=== PATIENT | female | born 1960 | race Caucasian/White ===

== ENCOUNTER → 2017-05-10 | Outpatient (CLI) | payer OTHER ==
[~2017-05-10] MED LIST: PRLSR20 PO
== END | disposition home or self-care (01) ==
LOC: C.PAPS 14:19
PROVIDERS: ATTEND Obstetrics & Gynecology
DX: Z12.4 Encounter for screening for malignant neoplasm of cervix (principal)

== ENCOUNTER 2022-06-13 21:45 | Inpatient (IN) ==
[2022-06-13] MEDS ORDERED: PANTOprazole 80 MG in DEXTROSE 5% 100 ML IV STA (22:08)
[2022-06-13] MEDS ORDERED: SODIUM CHLORIDE 0.9% 1000ML 1,000 ML IV SCH (22:15)
[2022-06-13 22:29] LABS: Basophils # (auto) 0.06 K/uL (0-0.2); Basophils % (auto) 0.8 %; Eosinophils # (auto) 0.27 K/uL (0-0.50); Eosinophils % (auto) 3.7 %; Hematocrit (blood only) 35.8 % (34.1-44.9); Hemoglobin 12.7 g/dl (12.0-16.0); Immature Granulocytes # (auto) 0.02 K/uL (0.00-0.02); Immature Granulocytes % (auto) 0.3 %; Lymphocytes # (auto) 1.78 K/uL (1.2-3.4); Lymphocytes % (auto) 24.7 %; Mean Corpuscular Hemoglobin 30.9 pg (25.0-34.0); Mean Corpuscular Hgb Conc 35.5 g/dL (32.0-36.0); Mean Corpuscular Volume 87.1 fL (80.0-100.0); Mean Platelet Volume 9.5 fL (9.4-12.3); Monocytes # (auto) 0.49 K/uL (0.24-0.82); Monocytes % (auto) 6.8 %; Neutrophils % (auto) 63.7 %; Platelet Count 246 K/uL (130-400); RDW Standard Deviation 38.5 fL (36.4-46.3); Red Blood Count 4.11 M/uL (3.93-5.22); White Blood Count 7.22 K/ul (4.8-10.8)
--- NOTE | 2022-06-13 22:29 | Emergency Department Note ---
Impression & Plan Acute GI bleeding, Dizziness, Vomiting, Tachycardia ED Provider Note NAME: SUNIL ZULUAGA AGE: 61 SEX: F : 1960 ARRIVES VIA: Walk-In INFORMANT: [Patient] ED PROVIDER(S): [Dustin Esparza MD] CHIEF COMPLAINT: Rectal bleeding HISTORY OF PRESENT ILLNESS: The patient is a 61-year-old female who presents to the ER with rectal bleeding that has been ongoing for 1.5 hours. She went to have a bowel movement and just purple dark blood was expelled. No stool. She has some lower abdominal cramping that is rated as mild. She did vomit once earlier, no blood in the vomitus. There has been no fever, no chills, no cough. No shortness of breath. She feels a bit dizzy she thinks since this all began. The patient does have a history of ulcers, she is on treatment--proton pump inhibitors. She has never had any bleeding from her colon. She is not on any blood thinning agents. REVIEW OF SYSTEMS: See HPI for pertinent positives and negatives. A total of ten systems were reviewed and were otherwise negative. PMHx/PSHx: See Below SOCIAL HISTORY: See Below. PHYSICAL EXAM: GENERAL: Patient is in no acute distress. HEENT: No acute trauma, normocephalic atraumatic, mucous membranes moist, no nasal congestion, no scleral icterus. NECK: No stridor, no adenopathy, no meningismus, trachea is midline. LUNGS: Clear to auscultation bilaterally, no wheeze, no rhonchi, breath sounds equal. HEART: Without murmurs gallops or rubs, regular rate and rhythm. ABDOMEN: Soft, nontender, bowel sounds positive, no peritonitis. EXTREMITIES: No cyanosis or edema, full range of motion of all the joints without pain or difficulty, no signs for acute trauma. NEUROLOGIC: Oriented x 3, no acute motor or sensory deficits, no focal weakness. SKIN: No rash, no jaundice, no diaphoresis. Rectal: No external source for bleeding. No hemorrhoids. Dark venous appearing blood noted, heme positive. Exam performed with female nurse bin packer. DIFFERENTIAL DIAGNOSIS: Diverticulosis, AVM, coagulopathy, colitis, inflammatory bowel disease, malignancy, Chrissy-Stubbs tear, esophagitis, peptic ulcer disease, variceal bleed, gastritis, epistaxis, fissure, hemorrhoids, as well as other pathologies. EMERGENCY DEPARTMENT COURSE/PROCEDURES: ECG: Indication was GI bleeding. The ECG shows a sinus tachycardia with a rate of 102. No ST elevation, no PVCs P the QTc was 445. Continuous Cardiac Monitoring: An order was placed for continuous cardiac monitoring. The monitor shows a rate of 110 with sinus tachycardia. Critical Care Note: I have personally spent 41 minutes of critical care time in the direct management of this patient. This includes bedside care, interpretation of diagnostic studies, and testing, discussion with consultants, patient, and family members, and other required patient management activities. This 41 minutes is in excess of all separately billable procedures. MEDICAL DECISION MAKING: There is no leukocytosis or concerning anemia. There is a normal platelet count. No coagulopathy. No significant electrolyte abnormality although, the BUN is slightly elevated. No worrisome liver enzyme elevation. ECG shows a sinus tachycardia, no ischemia. Cardiac enzyme testing x1 is not consistent with acute cardiac injury. COVID test returned negative. Abdominal and pelvis CT was read as essentially unremarkable. On exam, patient had dark venous appearing blood rectally. No external source for bleeding noted. Patient received IV Protonix, she received IV saline, 1 L. She has been resting comfortably. Patient is in need of a hospital stay. She appears to have GI bleeding, whether this is upper or lower is at this point not clear. Further work-up and care is warranted. She will need her hemoglobin followed. GI can decide on further testing tomorrow. I spoke with the patient and case management, the on-call hospitalist was consulted. Past Med/Surg History Medical History ASCUS with positive high risk HPV cervical GERD without esophagitis Stenosis of duodenum Surgical History History of dental surgery S/P surgery on nasal septum Family History Mother Myocardial infarction Heart disease Father GERD (gastroesophageal reflux disease) Osteoarthritis Denies family history of Ovarian cancer Prostate cancer Breast cancer Colorectal cancer Social History Smoking Status: Never smoker Hx Alcohol Use: Yes (Social drinker) Alcohol type: wine Alcohol Intake Frequency Comment: Once per week or less. Hx Substance Use: No Preferred Language: Yakut Communication Ability: Effective Visual Impairment: No Limitations Hearing Ability: Normal Pants Presser Automatic Required: No marital status: / current occupational status: employed current occupation: [employer] for a [employer] firm. Feels Safe at Home: Yes Seatbelt Use: always Allergies Allergies Allergy/AdvReac Type Severity Reaction Status Date / Time Sulfa (Sulfonamide Allergy Intermediate "SULFA": Verified 04/30/22 13:17 Antibiotics) RASH Penicillins Allergy Unknown ? Verified 04/30/22 13:17 Home Meds Home Medications Medication Instructions Recorded Confirmed multivitamin (Daily Multi-Vitamin 1 tab PO DAILY 04/23/19 04/30/22 tablet) cholecalciferol (vitamin D3) 50 50 mcg PO DAILY 04/28/21 04/30/22 mcg (2,000 unit) capsule Previous Rx's Medication Instructions Recorded omeprazole 40 mg capsule,delayed 40 mg PO DAILY #90 caps 04/30/22 release Results & Data (ED) Vital Signs Vital Signs - 24 hr 06/13/22 21:48 Temperature 36.5 C Temperature Source Temporal Artery Scan Pulse Rate 110 H Respiratory Rate 20 Respiratory Effort / Characteristics Non-Labored Spontaneous Respiratory Depth Normal Blood Pressure 125/89 Blood Pressure Mean 101 Pulse Oximetry 100 Oxygen Delivery Method Room Air Sepsis Recent Fever Within 48 Hours No Sepsis New/Unexplained Change in Mental Status N/A Sepsis Action Taken by Nursing No Action Required Home Medications Current Medication List: was personally reviewed by me Laboratory Data Attestation: I reviewed the patient's lab results. Result diagrams: 06/13/22 22:14 06/13/22 22:14 Lab Results 06/13/22 06/13/22 06/13/22 Range/Units 22:14 22:14 22:14 WBC 7.22 (4.8-10.8) K/ul RBC 4.11 (3.93-5.22) M/uL Hgb 12.7 (12.0-16.0) g/dl Hct 35.8 (34.1-44.9) % MCV 87.1 (80.0-100.0) fL MCH 30.9 (25.0-34.0) pg MCHC 35.5 (32.0-36.0) g/dL RDW Std Deviation 38.5 (36.4-46.3) fL RDW Coeff of Miller 12.0 (11.5-14.5) % Plt Count 246 (130-400) K/uL MPV 9.5 (9.4-12.3) fL Immature Gran % (Auto) 0.3 % Neut % (Auto) 63.7 % Lymph % (Auto) 24.7 % [place] % (Auto) 6.8 % Eos % (Auto) 3.7 % Baso % (Auto) 0.8 % Neut # (Auto) 4.60 (1.4-6.5) K/uL Lymph # (Auto) 1.78 (1.2-3.4) K/uL [place] # (Auto) 0.49 (0.24-0.82) K/uL Eos # (Auto) 0.27 (0-0.50) K/uL Baso # (Auto) 0.06 (0-0.2) K/uL Immature Gran # (Auto) 0.02 (0.00-0.02) K/uL PT 11.9 (9.0-12.0) Seconds INR 1.1 (0.9-1.1) APTT 23.6 (21.0-31.0) Seconds PTT Ratio 0.9 Sodium 140 (136-145) mmol/L Potassium 3.8 (3.5-5.1) mmol/L Chloride 109 H (98-107) mmol/L Carbon Dioxide 22 (21-32) mmol/L Anion Gap 9 (3-11) BUN 33 H (6-23) mg/dl Creatinine 0.74 (0.6-1.2) mg/dl Est Cr Clr Drug Dosing 64.7 ml/min Est GFR ( Amer) 102.8 ml/min Est GFR (Non-Af Amer) 88.7 ml/min BUN/Creatinine Ratio 44.6 H (10-20) Glucose 175 H (70-99(Fasting)) mg/dl Calcium 8.6 (8.5-10.1) mg/dl Magnesium 1.8 (1.7-2.4) mg/dl Total Bilirubin 1.1 H (0.2-1.0) mg/dl AST 18 (13-39) U/L ALT 13 (7-52) U/L Alkaline Phosphatase 42 (34-104) U/L Troponin I High Sens 2.3 (0-14) pg/ml Total Protein 6.3 (6.0-8.3) gm/dl Albumin 4.0 (3.4-5.0) gm/dl Globulin 2.3 L (2.5-4.0) gm/dl Albumin/Globulin Ratio 1.7 (0.9-2) SARS-CoV-2, RNA, NAAT (NEGATIVE) 06/13/22 Range/Units 22:29 WBC (4.8-10.8) K/ul RBC (3.93-5.22) M/uL Hgb (12.0-16.0) g/dl Hct (34.1-44.9) % MCV (80.0-100.0) fL MCH (25.0-34.0) pg MCHC (32.0-36.0) g/dL RDW Std Deviation (36.4-46.3) fL RDW Coeff of Miller (11.5-14.5) % Plt Count (130-400) K/uL MPV (9.4-12.3) fL Immature Gran % (Auto) % Neut % (Auto) % Lymph % (Auto) % [place] % (Auto) % Eos % (Auto) % Baso % (Auto) % Neut # (Auto) (1.4-6.5) K/uL Lymph # (Auto) (1.2-3.4) K/uL [place] # (Auto) (0.24-0.82) K/uL Eos # (Auto) (0-0.50) K/uL Baso # (Auto) (0-0.2) K/uL Immature Gran # (Auto) (0.00-0.02) K/uL PT (9.0-12.0) Seconds INR (0.9-1.1) APTT (21.0-31.0) Seconds PTT Ratio Sodium (136-145) mmol/L Potassium (3.5-5.1) mmol/L Chloride (98-107) mmol/L Carbon Dioxide (21-32) mmol/L Anion Gap (3-11) BUN (6-23) mg/dl Creatinine (0.6-1.2) mg/dl Est Cr Clr Drug Dosing ml/min Est GFR ( Amer) ml/min Est GFR (Non-Af Amer) ml/min BUN/Creatinine Ratio (10-20) Glucose (70-99(Fasting)) mg/dl Calcium (8.5-10.1) mg/dl Magnesium (1.7-2.4) mg/dl Total Bilirubin (0.2-1.0) mg/dl AST (13-39) U/L ALT (7-52) U/L Alkaline Phosphatase (34-104) U/L Troponin I High Sens (0-14) pg/ml Total Protein (6.0-8.3) gm/dl Albumin (3.4-5.0) gm/dl Globulin (2.5-4.0) gm/dl Albumin/Globulin Ratio (0.9-2) SARS-CoV-2, RNA, NAAT NEGATIVE (NEGATIVE) Administered Medications Discontinued Medications Sodium Chloride (Nss 1000ml) 1,000 mls @ 999 mls/hr IV .Q1H1M RENETTA Stop: 06/13/22 23:15 Last Infusion: 06/13/22 23:27 Dose: 0 mls/hr Documented By: Admin: 06/13/22 22:25 Dose: 999 mls/hr Documented By: ERIKA Pantoprazole Sodium 80 mg/ (Dextrose) 100 mls @ 400 mls/hr IV ONE STA Stop: 06/13/22 22:22 Last Infusion: 06/13/22 23:15 Dose: 0 mls/hr Documented By: Admin: 06/13/22 22:48 Dose: 400 mls/hr Documented By: ERIKA Ioversol (Optiray 350 100ml) 100 ml IV ONCE ONE Stop: 06/13/22 23:14 Last Admin: 06/13/22 23:13 Dose: 86 ml Documented By: KYLAH Imaging Data Radiologist's Impression: Abdominal and pelvis CT with contrast: The colon and rectum appear grossly normal. GI bleed tagged red blood cell scan could be performed to locate the source of bleeding. Solid organs demonstrate no acute findings. Slightly complex but likely benign left renal cysts. Small bowel and large bowel are no rmal. No appendicitis. Discharge Plan Visit Data Chief Complaint: Rectal Bleed Stated Complaint: RECTAL BLEEDING, VOMIT, ED Provider: Dustin Esparza Discharge Problem: Acute GI bleeding, Dizziness, Vomiting, Tachycardia Patient Disposition: Admitted As Inpatient Condition: Good Forms Stand Alone Forms: My [facility] Prescriptions Prescriptions: No Action cholecalciferol (vitamin D3) 50 mcg (2,000 unit) capsule 50 mcg PO DAILY omeprazole 40 mg capsule,delayed release(DR/EC) 40 mg PO DAILY Qty: 90 3RF multivitamin [Daily Multi-Vitamin] tablet 1 tab PO DAILY Referrals Referrals: Pro,Cesar Burleson MD [Primary Care Provider] -
[2022-06-13 22:41] LABS: INR 1.1 (0.9-1.1); Partial Thromboplastin Ratio 0.9; Partial Thromboplastin Time 23.6 Seconds (21.0-31.0); Prothrombin Time 11.9 Seconds (9.0-12.0)
[2022-06-13 22:54] LABS: Albumin Globulin Ratio 1.7 (0.9-2); BUN Creatinine Ratio 44.6 (10-20); Bilirubin,Total 1.1 mg/dl (0.2-1.0); Calcium 8.6 mg/dl (8.5-10.1); Creatinine Clr Calc Pharmacy 64.7 ml/min; Est GFR (African American) 102.8 ml/min; Est GFR (Non-African American) 88.7 ml/min; Globulin 2.3 gm/dl (2.5-4.0); Magnesium 1.8 mg/dl (1.7-2.4); Potassium 3.8 mmol/L (3.5-5.1); Total Protein 6.3 gm/dl (6.0-8.3)
[2022-06-13 22:57] LABS: Troponin I High Sensitivity 2.3 pg/ml (0-14)
[2022-06-13] MEDS ORDERED: OPTIRAY 350 100ml IV ONE (23:13)
--- NOTE | 2022-06-13 23:58 | History & Physical Report ---
Date of Service June 13, 2022 Assessment & Plan (1) Hematochezia: Plan: 61yo female with a history of HTN, GERD, and remote history of acute GI bleed (which did not require transfusion) presents with a few-hour history of hematochezia, nausea, and vomiting Hematochezia, nausea, vomiting Patient presented with the above symptoms; was initially tachycardic and tachypneic but this has resolved, currently hemodynamically stable In the ED, patient received NSS 1L bolus (x1) and pantoprazole 80mg IV (x1) No major lab abnormalities, no anemia (Hgb 12.7 on arrival), no electrolyte derangements GI consulted NPO pending possible scope Continue protonix 40mg IV bid NSS @ 100mL/hr (x1 bag ordered) Zofran prn nausea Trend CBC Hypertension: BP well-controlled at this time; continue to monitor GERD: PPI as noted above FEN: NPO, NSS @ 100mL/hr (x1 bag ordered) Code status: full code DVT ppx: SCDs Consults: gastroenterology Dispo: med/surg telemetry (2) GERD without esophagitis: (3) Hypertension: (4) Vomiting: History of Present Illness Primary Care Provider: Cesar Arevalo MD 61yo female with a history of HTN, GERD, and remote history of acute GI bleed (which did not require transfusion) presents with a few-hour history of hematochezia. Patient had a BM a few hours ago which she noticed was "purple dark blood". Patient also endorses mild lower abdominal cramping. Also had one episode of vomiting earlier today which was nonbloody and nonbilious. Patient denies fever, chills, abdominal pain, headache, vision changes, CP, palpitations, SOB, edema, abdominal pain, dysuria, back pain, dizziness, numbness, tingling, weakness, or other symptoms. Denies recent illness and recent travel. Upon arrival, vitals were notable for tachycardia (100-110s) and intermittent tachypnea (RR ranging from 20-27); BP well-controlled, patient afebrile, spO2 adequate on room air. Initial labs were relatively unremarkable; no leukocytosis, no anemia, platelets wnl, no electrolyte abnormalities, creatinine not elevated, LFTs wnl, covid PCR negative. In the ED, patient received NSS 1L bolus (x1) and pantoprazole 80mg IV (x1). EKG: sinus tachycardia, no overt ischemic change Imaging: CT abdomen/pelvis: no acute findings, colon and rectum grossly normal in appearance, "slightly complex but likely benign" left renal cysts noted measuring 5.8cm Surrogate decision-maker in case of an emergency: josy Paul (cell: [phone]) Allergies Allergy/AdvReac Type Severity Reaction Status Date / Time Sulfa (Sulfonamide Allergy Intermediate "SULFA": Verified 06/13/22 23:52 Antibiotics) RASH Penicillins Allergy Unknown ? Verified 06/13/22 23:52 Home Medications Medication Instructions Recorded Confirmed Type omeprazole 40 mg capsule,delayed 40 mg PO DAILY 06/13/22 06/13/22 History release Past Med/Surg History Medical History (Updated 06/14/22 @ 10:45 by Kaz Up MD) ASCUS with positive high risk HPV cervical Encounter for pre-operative examination GERD without esophagitis Stenosis of duodenum Surgical History History of dental surgery S/P surgery on nasal septum Family History Mother Myocardial infarction Heart disease Father GERD (gastroesophageal reflux disease) Osteoarthritis Denies family history of Ovarian cancer Prostate cancer Breast cancer Colorectal cancer Social History Smoking Status: Never smoker Second Hand Exposure: No; Do You Dip or Chew Tobacco: No; Tobacco Cessation Education Requested by Patient: No Hx Alcohol Use: Yes Alcohol type: wine Alcohol Intake Frequency Comment: Once per week or less. Hx Substance Use: No Preferred Language: Vietnamese Communication Ability: Effective Visual Impairment: No Limitations Hearing Ability: Normal Wire Stretcher Required: No Beliefs That Will Affect Care: None marital status: / Current Living Situation: Alone current occupational status: employed current occupation: [employer] for a [employer]. Other Information That Helps Us Care for You: No Feels Safe at Home: Yes Safety Concerns: Feels Safe At This Time Seatbelt Use: always Assistive Devices: None Physical Exam Physical Exam: Constitutional: well-appearing, no acute distress HEENT: NCAT, no conjunctival injection CV: regular rhythm, no murmur appreciated, extremities well-perfused, no LE edema Resp: CTABL, no wheezes/rales/rhonchi appreciated, no increased work of br eathing GI: soft, nondistended, nontender, BS normoactive MSK: no gross deformities appreciated Skin: warm, dry, no rash appreciated Neuro: alert, oriented, no focal neurologic deficit appreciated Results & Data Results & Data ([facility]) Vital Signs (Past 12 Hours) Vital Signs Temp Pulse Resp BP Pulse Ox O2 Del Method 06/13/22 23:00 94 H 27 H 100 06/13/22 22:31 140/93 06/13/22 22:31 95 H 20 98 06/13/22 22:30 96 H 27 H 98 06/13/22 22:13 140/95 06/13/22 22:13 102 H 24 96 06/13/22 22:06 7 L 97 06/13/22 21:48 36.5 C 110 H 20 125/89 100 Room Air Supervising Physician Co-Signing Physician Notes Attending addendum: I have physically seen this patient, have supervised the medical residents activities, and agree with the H&P unless as otherwise noted. Assessment and Plan: GI bleed- NPO Given Protonix 80 mg IV from the ED, will continue 40 mg IV twice daily IV fluids NSS 100 mils per hour H&H every 6 hours Zofran 4 mg IV every 6 hours as needed Consult gastroenterology Hypertension hold medications at this time Remaining orders and notations as noted Resident Activity Tracking Resident Involvement: Resident Care Provided and Hand Splitter Coverage Note Care Provided: Adult Hospital Medicine (1) Vomiting Nausea presence: with nausea Vomiting type: unspecified Qualified Code(s): R11.2 - Nausea with vomiting, unspecified
[2022-06-14] MEDS ORDERED: ONDANSETRON INJ 2 MG/ML 2 ML VIAL IV PRN (01:02)
[2022-06-14] MEDS ORDERED: SODIUM CHLORIDE 0.9% 1000ML 1,000 ML IV SCH (01:15)
--- NOTE | 2022-06-14 08:44 | CT Scan Report ---
CT SCAN OF THE ABDOMEN AND PELVIS WITH IV CONTRAST CLINICAL HISTORY: Generalized abdominal pain. Hematochezia. COMPARISON STUDY: Abdominal CT dated 06/24/2011. TECHNIQUE: Following the IV administration of 86 cc of Optiray 350, CT scan of the abdomen and pelvi s is performed from the lung bases to the proximal femora. Images are reviewed in the axial, sagittal , and coronal planes. IV contrast was administered without complication. A dose lowering technique wa s utilized adhering to the principles of ALARA. CT DOSE: 254.35 mGy.cm FINDINGS: Lung bases: The heart is normal in size and without pericardial effusion. There are at least 5 left l ower lobe pulmonary nodules measuring up to 6 mm. A 5 mm nodule is also seen in the right lower lobe. There is no airspace consolidation or pleural effusion. Liver: The contrast-enhanced liver is normal in size, contour, and attenuation. There is no intrahepa tic biliary ductal dilatation. The hepatic veins and portal veins are patent. Gallbladder: Contracted. Spleen: Normal in size and attenuation. Pancreas: Unremarkable. Adrenal glands: Unremarkable. Kidneys: The contrast enhanced kidneys are normal in size and without hydronephrosis. The kidneys enh ance symmetrically. A 6 cm cyst is noted in the interpolar left kidney. A circumaortic left renal vei n is incidentally noted. Abdominal vasculature: The abdominal aorta is normal in course and caliber. Bowel: There is no bowel obstruction. Mild fecal retention is seen throughout the colon. The appendix is nonvisualized. Peritoneum: There is no intraperitoneal free air or abdominal ascites. There is a small fat-containin g umbilical hernia. Lymphadenopathy: None. Pelvic viscera: The bladder, uterus, and adnexa are normal as visualized. Skeletal structures: No lytic or blastic lesions are seen. IMPRESSION: 1. No acute infectious or inflammatory findings identified in the abdomen or pelvis. 2. Bibasilar pulmonary nodules measure up to 6 mm. These are pathologically indeterminant, and have i ncreased in size dating back to 2010. Consider a precautionary 6 month follow-up chest CT for reasses sment and for full evaluation of the thorax. 3. Additional findings as above. ACT 112: Positive. There are findings on this exam that require communication between the performing entity and the patient following Patient Test Result Information Act ([place] Act 112) guidelines. Electronically signed by: Dustin Woodard M.D. 06/14/2022 8:43 AM
[2022-06-14] MEDS ORDERED: PANTOprazole 40 MG in SYRINGE 0 ML IV SCH (09:00)
[2022-06-14 09:01] LABS: Basophils # (auto) 0.05 K/uL (0-0.2); Basophils % (auto) 1.1 %; Eosinophils # (auto) 0.13 K/uL (0-0.50); Eosinophils % (auto) 2.9 %; Hematocrit (blood only) 32.7 % (34.1-44.9); Hemoglobin 11.3 g/dl (12.0-16.0); Immature Granulocytes # (auto) 0.01 K/uL (0.00-0.02); Immature Granulocytes % (auto) 0.2 %; Lymphocytes # (auto) 1.26 K/uL (1.2-3.4); Lymphocytes % (auto) 27.7 %; Mean Corpuscular Hgb Conc 34.6 g/dL (32.0-36.0); Mean Corpuscular Volume 86.7 fL (80.0-100.0); Mean Platelet Volume 9.7 fL (9.4-12.3); Monocytes # (auto) 0.32 K/uL (0.24-0.82); Neutrophils # (auto) 2.78 K/uL (1.4-6.5); Neutrophils % (auto) 61.1 %; Platelet Count 217 K/uL (130-400); RDW Coefficient of Variation 12.2 % (11.5-14.5); RDW Standard Deviation 38.7 fL (36.4-46.3); Red Blood Count 3.77 M/uL (3.93-5.22); White Blood Count 4.55 K/ul (4.8-10.8)
[2022-06-14 09:30] LABS: BUN Creatinine Ratio 31.1 (10-20); Calcium 8.4 mg/dl (8.5-10.1); Creatinine Clr Calc Pharmacy 64.7 ml/min; Est GFR (African American) 102.8 ml/min; Est GFR (Non-African American) 88.7 ml/min; Potassium 3.9 mmol/L (3.5-5.1)
--- NOTE | 2022-06-14 09:37 | Gastrointestinal Consultation ---
Date of Consultation June 14, 2022 Assessment & Plan (1) Acute GI bleeding: (2) GERD without esophagitis: Plan Patient is a 61 y.o. female with a history of GERD, recently self-discontinued PPI admitted with melena and emesis x1. -NPO for now. -EGD with Dr. Goins today for further evaluation. -Continue Pantoprazole 40 mg IV BID. -Further recommendations will be made pending results of testing. Thank you for allowing us to participate in the care of this patient. If you have any questions or concerns, please do not hesitate to contact us. Supervising Physician Co-Signing Physician Notes Agree with CONOR Weir as above Abd: Soft, NT, ND, +BS Continue current therapy and supportive care Proceed with EGD now for further evaluation History of Present Illness Reason for Consultation: Rectal Bleed Requesting Physician: Dr. Lyon Attending Physician: Vj Hudson MD History of Present Illness I had the pleasure of seeing Page Paul at the bedside at the request of Dr. Lyon for rectal bleeding which the patient reports began last evening. She states the blood is rather dark in nature. She denies any recent NSAID or anticoagulant use but states she did stop her Omeprazole just two weeks prior to the onset of symptoms. She has since resumed therapy. On arrival, she was found to be hemodynamically stable without tachycardia or hypotension. BUN was elevated at 33. She denies any nausea or abdominal pain but states she did have a single episode of emesis last evening that was described as "castellanos". She has been placed on NPO status and started on Pantoprazole 40 mg IV BID. Denies any other complaints at this time. Allergies Allergy/AdvReac Type Severity Reaction Status Date / Time Sulfa (Sulfonamide Allergy Intermediate "SULFA": Verified 06/13/22 23:52 Antibiotics) RASH Penicillins Allergy Unknown ? Verified 06/13/22 23:52 Home Medications Medication Instructions Recorded Confirmed Type omeprazole 40 mg capsule,delayed 40 mg PO DAILY 06/13/22 06/13/22 History release Patient History Medical History (Updated 06/14/22 @ 10:45 by Kaz Up MD) ASCUS with positive high risk HPV cervical Encounter for pre-operative examination GERD without esophagitis Stenosis of duodenum Surgical History History of dental surgery S/P surgery on nasal septum Family History Mother Myocardial infarction Heart disease Father GERD (gastroesophageal reflux disease) Osteoarthritis Denies family history of Ovarian cancer Prostate cancer Breast cancer Colorectal cancer Social History Smoking Status: Never smoker Second Hand Exposure: No; Do You Dip or Chew Tobacco: No; Tobacco Cessation Education Requested by Patient: No Hx Alcohol Use: Yes Alcohol type: wine Alcohol Intake Frequency Comment: Once per week or less. 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 Other Information That Helps Us Care for You: No Feels Safe at Home: Yes Safety Concerns: Feels Safe At This Time Seatbelt Use: always Assistive Devices: None Review of Systems Review of Systems: All systems reviewed & are unremarkable except as noted in HPI & below Physical Exam Constitutional: WD/WN, vitals as above Eyes: EOM intact bilaterally Neck: normal appearance Respiratory: normal respiratory effort, lungs clear to auscultation Cardiovascular: Rate/Rhythm: regular rate and regular rhythm Heart Sounds: no gallop and no murmur Gastrointestinal (Abdomen): normal bowel sounds, soft, nontender, no hepatosplenomegaly Inspection/Auscultation: abdomen not distended Musculoskeletal: Extremities: no cyanosis no lower extremity edema Skin: no rashes, warm and dry Neurologic: moves all extremities Psychiatric: A+Ox3, euthymic affect Results & Data ([facility] [place]) Vital Signs (Past 12 Hours) Vital Signs Temp Pulse Pulse Resp BP BP Pulse Ox 06/14/22 07:54 71 06/14/22 07:22 36.5 C 78 18 126/81 99 06/14/22 02:36 102 H 06/14/22 02:20 37.3 C 88 16 147/87 H 98 06/14/22 01:03 87 16 137/78 100 06/13/22 23:00 94 H 27 H 100 06/13/22 22:31 140/93 06/13/22 22:31 95 H 20 98 06/13/22 22:30 96 H 27 H 98 06/13/22 22:13 140/95 06/13/22 22:13 102 H 24 96 06/13/22 22:06 7 L 97 06/13/22 21:48 36.5 C 110 H 20 125/89 100 O2 Del Method 06/14/22 07:54 06/14/22 07:22 Room Air 06/14/22 02:36 06/14/22 02:20 Room Air 06/14/22 01:03 Room Air 06/13/22 23:00 06/13/22 22:31 06/13/22 22:31 06/13/22 22:30 06/13/22 22:13 06/13/22 22:13 06/13/22 22:06 06/13/22 21:48 Room Air Diagnostic Findings Laboratory Results WBC 4.55 K/ul (4.8-10.8) L 06/14/22 08:34 RBC 3.77 M/uL (3.93-5.22) L 06/14/22 08:34 Hgb 11.3 g/dl (12.0-16.0) L 06/14/22 08:34 Hct 32.7 % (34.1-44.9) L 06/14/22 08:34 MCV 86.7 fL (80.0-100.0) 06/14/22 08:34 MCH 30.0 pg (25.0-34.0) 06/14/22 08:34 MCHC 34.6 g/dL (32.0-36.0) 06/14/22 08:34 RDW Std Deviation 38.7 fL (36.4-46.3) 06/14/22 08:34 RDW Coeff of Miller 12.2 % (11.5-14.5) 06/14/22 08:34 Plt Count 217 K/uL (130-400) 06/14/22 08:34 MPV 9.7 fL (9.4-12.3) 06/14/22 08:34 Immature Gran % (Auto) 0.2 % 06/14/22 08:34 Neut % (Auto) 61.1 % 06/14/22 08:34 Lymph % (Auto) 27.7 % 06/14/22 08:34 Roosevelt % (Auto) 7.0 % 06/14/22 08:34 Eos % (Auto) 2.9 % 06/14/22 08:34 Baso % (Auto) 1.1 % 06/14/22 08:34 Neut # (Auto) 2.78 K/uL (1.4-6.5) 06/14/22 08:34 Lymph # (Auto) 1.26 K/uL (1.2-3.4) 06/14/22 08:34 Roosevelt # (Auto) 0.32 K/uL (0.24-0.82) 06/14/22 08:34 Eos # (Auto) 0.13 K/uL (0-0.50) 06/14/22 08:34 Baso # (Auto) 0.05 K/uL (0-0.2) 06/14/22 08:34 Immature Gran # (Auto) 0.01 K/uL (0.00-0.02) 06/14/22 08:34 PT 11.9 Seconds (9.0-12.0) 06/13/22 22:14 INR 1.1 (0.9-1.1) 06/13/22 22:14 APTT 23.6 Seconds (21.0-31.0) 06/13/22 22:14 PTT Ratio 0.9 06/13/22 22:14 Sodium 142 mmol/L (136-145) 06/14/22 08:23 Potassium 3.9 mmol/L (3.5-5.1) 06/14/22 08:23 Chloride 111 mmol/L (98-107) H 06/14/22 08:23 Carbon Dioxide 28 mmol/L (21-32) 06/14/22 08:23 Anion Gap 3 (3-11) 06/14/22 08:23 BUN 23 mg/dl (6-23) 06/14/22 08:23 Creatinine 0.74 mg/dl (0.6-1.2) 06/14/22 08:23 Est Cr Clr Drug Dosing 64.7 ml/min 06/14/22 08:23 Est GFR ( Amer) 102.8 ml/min 06/14/22 08:23 Est GFR (Non-Af Amer) 88.7 ml/min 06/14/22 08:23 BUN/Creatinine Ratio 31.1 (10-20) H 06/14/22 08:23 Glucose 102 mg/dl (70-99(Fasting)) H 06/14/22 08:23 Calcium 8.4 mg/dl (8.5-10.1) L 06/14/22 08:23 Magnesium 2.0 mg/dl (1.7-2.4) 06/14/22 08:23 Total Bilirubin 1.1 mg/dl (0.2-1.0) H 06/13/22 22:14 AST 18 U/L (13-39) 06/13/22 22:14 ALT 13 U/L (7-52) 06/13/22 22:14 Alkaline Phosphatase 42 U/L (34-104) 06/13/22 22:14 Troponin I High Sens 2.3 pg/ml (0-14) 06/13/22 22:14 Total Protein 6.3 gm/dl (6.0-8.3) 06/13/22 22:14 Albumin 4.0 gm/dl (3.4-5.0) 06/13/22 22:14 Globulin 2.3 gm/dl (2.5-4.0) L 06/13/22 22:14 Albumin/Globulin Ratio 1.7 (0.9-2) 06/13/22 22:14 SARS-CoV-2, RNA, NAAT NEGATIVE (NEGATIVE) 06/13/22 22:29 Blood Type O Positive 06/13/22 22:34 Antibody Screen NEGATIVE 06/13/22 22:34 Impressions Abdomen/Pelvis CT 06/13/22 22:08 CT SCAN OF THE ABDOMEN AND PELVIS WITH IV CONTRAST CLINICAL HISTORY: Generalized abdominal pain. Hematochezia. COMPARISON STUDY: Abdominal CT dated 06/24/2011. TECHNIQUE: Following the IV administration of 86 cc of Optiray 350, CT scan of the abdomen and pelvis is performed from the lung bases to the proximal femora. Images are reviewed in the axial, sagittal, and coronal planes. IV contrast was administered without complication. A dose lowering technique was utilized adhering to the principles of ALARA. CT DOSE: 254.35 mGy.cm FINDINGS: Lung bases: The heart is normal in size and without pericardial effusion. There are at least 5 left lower lobe pulmonary nodules measuring up to 6 mm. A 5 mm nodule is also seen in the right lower lobe. There is no airspace consolidation or pleural effusion. Liver: The contrast-enhanced liver is normal in size, contour, and attenuation. There is no intrahepatic biliary ductal dilatation. The hepatic veins and portal veins are patent. Gallbladder: Contracted. Spleen: Normal in size and attenuation. Pancreas: Unremarkable. Adrenal glands: Unremarkable. Kidneys: The contrast enhanced kidneys are normal in size and without hydronephrosis. The kidneys enhance symmetrically. A 6 cm cyst is noted in the interpolar left kidney. A circumaortic left renal vein is incidentally noted. Abdominal vasculature: The abdominal aorta is normal in course and caliber. Bowel: There is no bowel obstruction. Mild fecal retention is seen throughout the colon. The appendix is nonvisualized. Peritoneum: There is no intraperitoneal free air or abdominal ascites. There is a small fat-containing umbilical hernia. Lymphadenopathy: None. Pelvic viscera: The bladder, uterus, and adnexa are normal as visualized. Skeletal structures: No lytic or blastic lesions are seen. IMPRESSION: 1. No acute infectious or inflammatory findings identified in the abdomen or pelvis. 2. Bibasilar pulmonary nodules measure up to 6 mm. These are pathologically indeterminant, and have increased in size dating back to 2010. Consider a precautionary 6 month follow-up chest CT for reassessment and for full evaluation of the thorax. 3. Additional findings as above. ACT 112: Positive. There are findings on this exam that require communication between the performing entity and the patient following Patient Test Result Information Act ([place] Act 112) guidelines. Electronically signed by: Dustin Woodard M.D. 06/14/2022 8:43 AM PG Care Time/CCT Total # of Minutes Spent Total Time Spent with Patient: Total time spent is greater than 50% in coordination of care (as documented) at patient's floor/unit and/or counseling patient: Coding Level of Care Code 72380 Office/OBS Consult Lvl 3 Diagnoses Acute GI bleeding K92.2 GERD without esophagitis K21.9
--- NOTE | 2022-06-14 10:46 | Anesthesiology Consultation ---
Date of Service June 14, 2022 Assessment & Plan (1) Encounter for pre-operative examination: Chart Review Chart Review: Acceptable Risk for Surgery, Patient NOT seen in Pre Admission Testing and data entry assistant initiated Consults Requested none History Surgery Operation Date: 06/14/22 16:30 Proposed Procedures p Esophagogastroduodenoscopy Dr Buster Cardenas Case, DO Height/Weight Height: 5 ft 2 in Weight: 57.4 kg Allergies Allergy/AdvReac Type Severity Reaction Status Date / Time Sulfa (Sulfonamide Allergy Intermediate "SULFA": Verified 06/13/22 23:52 Antibiotics) RASH Penicillins Allergy Unknown ? Verified 06/13/22 23:52 Medications Home Medications Medication Instructions Recorded Confirmed Last Taken omeprazole 40 mg capsule,delayed 40 mg PO DAILY 06/13/22 06/13/22 Unknown release Active Medications Generic Name Dose Route Start Last Admin Trade Name Freq PRN Reason Stop Dose Admin Sodium Chloride 1,000 mls @ 100 mls/hr 06/14/22 01:15 06/14/22 02:20 Nss 1000ml IV 06/14/22 11:14 100 mls/hr .Q10H RENETTA Administration Pantoprazole Sodium 40 mg/ 10 mls @ 5 mls/min 06/14/22 09:00 06/14/22 08:02 Syringe IV 07/14/22 08:59 5 mls/min BID RENETTA Administration Past Medical History Medical History (Updated 06/14/22 @ 10:45 by Kaz Up MD) ASCUS with positive high risk HPV cervical Encounter for pre-operative examination GERD without esophagitis Stenosis of duodenum Past Family History Family History Mother Myocardial infarction Heart disease Father GERD (gastroesophageal reflux disease) Osteoarthritis Denies family history of Ovarian cancer Prostate cancer Breast cancer Colorectal cancer Past Surgical History Surgical History History of dental surgery S/P surgery on nasal septum Social History Smoking Status: Never smoker Do You Dip or Chew Tobacco: No Hx Alcohol Use: Yes Alcohol type: wine alcohol intake frequency: a few times a month Hx Substance Use: No Physical Exam Vital Signs Last Vital Signs Temp 36.5 C 06/14/22 07:22 Pulse 71 06/14/22 07:54 Resp 18 06/14/22 07:22 BP 126/81 06/14/22 07:22 Pulse Ox 99 06/14/22 07:22 O2 Del Method 06/14/22 07:22 Testing Laboratory Results 06/14/22 08:34 06/14/22 08:23 PT 11.9 Seconds (9.0-12.0) 06/13/22 22:14 INR 1.1 (0.9-1.1) 06/13/22 22:14 APTT 23.6 Seconds (21.0-31.0) 06/13/22 22:14 Blood Type O Positive 06/13/22 22:34 Antibody Screen NEGATIVE 06/13/22 22:34 Electrocardiogram Date: 06/13/2213-Jun-2022 22:22:55 [facility]-EDSTAT ROUTINE RETRIEVAL Sinus tachycardia Left posterior fascicular block Cannot rule out Inferior infarct , age undetermined Abnormal ECG No previous ECGs available
[2022-06-14] MEDS ORDERED: ONDANSETRON INJ 2 MG/ML 2 ML VIAL ONE ×2 (12:55→13:17)
[2022-06-14] MEDS ORDERED: PROPOFOL IV EMULSION 10 MG/ML 20 ML VIAL IV ONE (12:55)
[2022-06-14] MEDS ORDERED: GLYCOPYRROLATE 0.2 MG/ML VIAL ONE (12:55)
[2022-06-14] MEDS ORDERED: LIDOCAINE 2% MPF LOCAL 5 ML VIAL INFIL ONE (12:55)
--- NOTE | 2022-06-14 13:09 | GI REPORT ---
Patient Name: Page Paul Procedure Date: 06/14/2022 12:05 PM Date of : 1960 Admit Type: Inpatient Age: 61 Gender: Female Attending MD: Aditya Goins DO Procedure: Upper GI endoscopy Providers: Aditya Goins DO Referring MD: Cesar Arevalo Indications: Melena Medicines: Monitored Anesthesia Care Complications: No immediate complications. Estimated Blood Loss: Estimated blood loss: none. Procedure: Pre-Anesthesia Assessment: - Prior to the procedure, a History and Physical was performed, and patient medications and allergies were reviewed. The patient's tolerance of previous anesthesia was also reviewed. The risks and benefits of the procedure and the sedation options and risks were discussed with the patient. All questions were answered, and informed consent was obtained. Prior Anticoagulants: The patient has taken no previous anticoagulant or antiplatelet agents. ASA Grade Assessment: II - A patient with mild systemic disease. After reviewing the risks and benefits, the patient was deemed in satisfactory condition to undergo the procedure. After obtaining informed consent, the endoscope was passed under direct vision. Throughout the procedure, the patient's blood pressure, pulse, and oxygen saturations were monitored continuously. The Endoscope was introduced through the mouth, and advanced to the second part of duodenum. The upper GI endoscopy was accomplished without difficulty. The patient tolerated the procedure well. Findings: The esophagus was normal. The entire examined stomach was normal. One non-bleeding cratered duodenal ulcer with a visible vessel was found in the duodenal bulb. The lesion was 10 mm in largest dimension. Area was successfully injected with 4 mL of a 1:10,000 solution of epinephrine for hemostasis. Fulguration to ablate the lesion to prevent bleeding by bipolar probe was successful. Impression: - Normal esophagus. - Normal stomach. - Non-bleeding duodenal ulcer with a visible vessel. Injected. Treated with bipolar cautery. - No specimens collected. Recommendation: - [facility] patient to [facility]. - Give Protonix (pantoprazole): initiate therapy with 80 mg IV bolus, then 8 mg/hr IV by continuous infusion for 3 days. - Clear liquid diet. - Check stool for H. pylori Ag Aditya Goins DO 06/14/2022 1:08:42 PM This report has been signed electronically. Note Initiated On: 06/14/2022 12:05 PM Number of Addenda: 0 I attest to the content of the Intraoperative Record and orders documented therein, exceptions below {[id number]}
[2022-06-14] MEDS ORDERED: fentaNYL citrate 100 MCG/2 ML VIAL ONE (13:33)
[2022-06-14] MEDS ORDERED: ePHEDrine sulfate 50 MG/ML AMP IV PRN (13:36)
[2022-06-14] MEDS ORDERED: fentaNYL citrate 100 MCG/2 ML VIAL IV PRN (13:36)
[2022-06-14] MEDS ORDERED: ATROPINE SULFATE 0.1 MG/ML 10ML SYR IV PRN (13:36)
--- NOTE | 2022-06-14 15:37 | Anesthesiology Progress Note ---
Date of Service June 14, 2022 Anesthesia Post Procedure Vital Signs Vital Signs: Temp Pulse Pulse Resp BP BP Pulse Ox 06/14/22 14:55 37.5 C 90 18 128/89 99 06/14/22 14:23 37.1 C 87 18 127/83 98 06/14/22 13:38 81 18 130/80 100 06/14/22 13:23 79 18 118/74 100 06/14/22 13:08 94 H 16 136/87 100 06/14/22 11:27 36.6 C 79 16 132/85 99 06/14/22 11:22 37.1 C 95 H 18 134/84 97 06/14/22 07:54 71 06/14/22 07:22 36.5 C 78 18 126/81 99 06/14/22 02:36 102 H 06/14/22 02:20 37.3 C 88 16 147/87 H 98 06/14/22 01:03 87 16 137/78 100 06/13/22 23:00 94 H 27 H 100 06/13/22 22:31 140/93 06/13/22 22:31 95 H 20 98 06/13/22 22:30 96 H 27 H 98 06/13/22 22:13 140/95 06/13/22 22:13 102 H 24 96 06/13/22 22:06 7 L 97 06/13/22 21:48 36.5 C 110 H 20 125/89 100 O2 Del Method 06/14/22 14:55 Room Air 06/14/22 14:23 Room Air 06/14/22 13:38 Room Air 06/14/22 13:23 Room Air 06/14/22 13:08 Room Air 06/14/22 11:27 Room Air 06/14/22 11:22 Room Air 06/14/22 07:54 06/14/22 07:22 Room Air 06/14/22 02:36 06/14/22 02:20 Room Air 06/14/22 01:03 Room Air 06/13/22 23:00 06/13/22 22:31 06/13/22 22:31 06/13/22 22:30 06/13/22 22:13 06/13/22 22:13 06/13/22 22:06 06/13/22 21:48 Room Air Pain Intensity Medial Abdomen: Pain Intensity: 2 Transfer of Care Handoff Completed per policy Notes Mental Status: alert / awake / arousable and participated in evaluation Patient Amnestic to Procedure: Yes Nausea / Vomiting: adequately controlled Pain: adequately controlled Airway Patency, RR, SpO2: stable & adequate BP & HR: stable & adequate Hydration State: stable & adequate Anesthetic Complications: no major complications apparent and Pt Satisfied with anesthetic care
--- NOTE | 2022-06-14 19:18 | Billing Data ---
Date of Service June 14, 2022 Coding Level of Care Code 77462 Initial Inpt Care Lvl 3
[2022-06-14] MEDS: PANTOprazole 40 MG in DEXTROSE 5% 100 ML IV SCH (19:36)
--- NOTE | 2022-06-14 19:47 | Hospitalist Progress Note ---
Date of Service June 14, 2022 Assessment & Plan (1) Acute GI bleeding: Plan: Nonbleeding ulcer on EGD today after recently discontinuing her omeprazole H. pylori testing pending Advance to clear liquids diet by gastroenterology Continue pantoprazole 40 mg IV twice daily Repeat hemoglobin with a.m. labs (2) GERD without esophagitis: Plan VTE Prophylaxis - SCDs Diet - per gastroenterology Disposition - continued observation on med/tele Admission and Anticipated Discharge Date Admission Date: June 14, 2022 Subjective No shortness of breath, chest pain, dizziness. Patient seen after endoscopy and tolerating clear liquid diet at this time. No nausea, vomiting, hematemesis, abdominal pain. Review of Systems Review of Systems: All systems reviewed & are unremarkable except as noted in Subjective Physical Exam Constitutional: WD/WN, vitals as above ENMT: external ear and nose normal, oropharynx normal Neck: trachea midline, no thyromegaly Respiratory: normal respiratory effort, lungs clear to auscultation Cardiovascular: RRR, no murmur, no edema Gastrointestinal (Abdomen): normal bowel sounds, soft, nontender, no hepatosplenomegaly Neurologic: moves all extremities and awake; not confused Psychiatric: A+Ox3, euthymic affect Results & Data Results & Data ([facility]) Vital Signs (Past 12 Hours) Vital Signs Temp Pulse Pulse Resp BP Pulse Ox O2 Del Method 06/14/22 11:27 36.6 C 79 16 132/85 99 Room Air 06/14/22 11:22 37.1 C 95 H 18 134/84 97 Room Air 06/14/22 07:54 71 06/14/22 07:22 36.5 C 78 18 126/81 99 Room Air 06/14/22 02:36 102 H 06/14/22 02:20 37.3 C 88 16 147/87 H 98 Room Air 06/14/22 01:03 87 16 137/78 100 Room Air PG Care Time/CCT Total # of Minutes Spent Total Time Spent with Patient: Total time spent is greater than 50% in coordination of care (as documented) at patient's floor/unit and/or counseling patient: Coding Level of Care Code 34662 Subseq Obs Care Lvl 2 Diagnoses Acute GI bleeding K92.2 GERD without esophagitis K21.9
--- NOTE | 2022-06-14 21:37 | Electrocardiogram Report ---
Test Reason : Blood Pressure : / mmHG Vent. Rate : 102 BPM Atrial Rate : 102 BPM P-R Int : 168 ms QRS Dur : 082 ms QT Int : 342 ms P-R-T Axes : 000 139 142 degrees QTc Int : 445 ms Sinus tachycardia Left posterior fascicular block vs limb lead reversal Abnormal ECG No previous ECGs available Confirmed by Hieu Reis ([id number]) on 06/14/2022 9:37:19 PM Referred By: REFERRED SELF Confirmed By:Hieu Reis
[2022-06-15] MEDS: PANTOprazole 40 MG in DEXTROSE 5% 100 ML IV SCH ×5 (00:02→21:16)
[2022-06-15] MEDS: ACETAMINOPHEN 325 MG TAB PO PRN ×2 (00:03→21:16)
[2022-06-15 08:22] LABS: Hematocrit (blood only) 29.9 % (34.1-44.9); Hemoglobin 10.4 g/dl (12.0-16.0); Mean Corpuscular Hemoglobin 30.4 pg (25.0-34.0); Mean Corpuscular Hgb Conc 34.8 g/dL (32.0-36.0); Mean Corpuscular Volume 87.4 fL (80.0-100.0); Mean Platelet Volume 9.3 fL (9.4-12.3); Platelet Count 194 K/uL (130-400); RDW Coefficient of Variation 12.3 % (11.5-14.5); RDW Standard Deviation 39.5 fL (36.4-46.3); Red Blood Count 3.42 M/uL (3.93-5.22); White Blood Count 4.67 K/ul (4.8-10.8)
--- NOTE | 2022-06-15 09:22 | Gastroenterology Progress Note ---
Date of Service June 15, 2022 Assessment & Plan (1) Acute GI bleeding: (2) Duodenal ulcer: Plan Patient is a 61 y.o. female with a history of GERD, recently self-discontinued PPI admitted with melena and emesis x1 found to have duodenal bulb ulcer with stigmata. -Clear liquid diet today and advance slowly tomorrow as tolerated. -Pantoprazole ggt at 8 mg/hr for a total of 72 hours. -Avoid NSAIDs. -Rest per primary team. Admission and Anticipated Discharge Date Admission Date: June 14, 2022 Supervising Physician Co-Signing Physician Notes Agree with CONOR Weir as above Abd: Soft, NT, ND, +BS Continue current therapy with Protonix gtt for 72 hours, then Protonix 40 mg by mouth BID for 8 weeks, then 40 mg by mouth daily thereafter. Continue supportive care Subjective Patient reports she is doing well. Mild abdominal pain in the epigastric region post EGD yesterday, now resolved. Findings of duodenal ulcer with visible vessel s/p hemostasis. Remains on PPI ggt. H&H did drop to 10.4/29.9 although she has not passed any stool rectally and denies any bleeding. Remains on clear liquids. Review of Systems Constitutional: no fever and no chills Gastrointestinal: as per Subjective / HPI Physical Exam Constitutional: WD/WN, vitals as above Respiratory: normal respiratory effort, lungs clear to auscultation Cardiovascular: RRR, no murmur, no edema Gastrointestinal (Abdomen): normal bowel sounds, soft, nontender, no hepatosplenomegaly Psychiatric: A+Ox3, euthymic affect Results & Data Results & Data ([facility]) Vital Signs (Past 12 Hours) Vital Signs Temp Pulse Pulse Pulse Resp BP Pulse Ox 06/15/22 07:58 36.9 C 88 18 127/76 97 06/15/22 03:36 36.8 C 96 H 16 108/69 98 06/14/22 22:13 72 06/14/22 22:44 36.9 C 96 H 18 114/65 98 O2 Del Method 06/15/22 07:58 Room Air 06/15/22 03:36 Room Air 06/14/22 22:13 06/14/22 22:44 Room Air Diagnostic Findings Abnormal lab results 06/14/22 06/15/22 Range/Units 08:23 08:07 WBC 4.67 L (4.8-10.8) K/ul RBC 3.42 L (3.93-5.22) M/uL Hgb 10.4 L (12.0-16.0) g/dl Hct 29.9 L (34.1-44.9) % MPV 9.3 L (9.4-12.3) fL Chloride 111 H (98-107) mmol/L BUN/Creatinine Ratio 31.1 H (10-20) Glucose 102 H (70-99(Fasting)) mg/dl Calcium 8.4 L (8.5-10.1) mg/dl PG Care Time/CCT Total # of Minutes Spent Total Time Spent with Patient: Total time spent is greater than 50% in coordination of care (as documented) at patient's floor/unit and/or counseling patient: Coding Level of Care Code 07645 Subseq Hosp Care Lvl 3 Diagnoses Acute GI bleeding K92.2 Duodenal ulcer K26.9
[2022-06-15 09:31] LABS: BUN Creatinine Ratio 16.3 (10-20); Calcium 8.3 mg/dl (8.5-10.1); Creatinine Clr Calc Pharmacy 55.7 ml/min; Est GFR (African American) 85.7 ml/min; Est GFR (Non-African American) 73.9 ml/min; Potassium 3.6 mmol/L (3.5-5.1)
--- NOTE | 2022-06-15 19:44 | Hospitalist Progress Note ---
Date of Service June 15, 2022 Assessment & Plan (1) Acute GI bleeding: Plan: Nonbleeding ulcer on EGD [06/14] after recently discontinuing her omeprazole H. pylori testing pending Advanced to clear liquids diet by gastroenterology Continue pantoprazole 8mg/hr Repeat hemoglobin with a.m. labs (2) GERD without esophagitis: Plan VTE Prophylaxis - SCDs Diet - per gastroenterology Disposition - admission, can downgrade to med/surg Admission and Anticipated Discharge Date Admission Date: June 14, 2022 Subjective No hematemesis, nausea, vomiting, abdominal pain, diarrhea, melena or bright red blood per rectum. Review of Systems Review of Systems: All systems reviewed & are unremarkable except as noted in Subjective Physical Exam Constitutional: WD/WN, vitals as above Respiratory: normal respiratory effort, lungs clear to auscultation Cardiovascular: RRR, no murmur, no edema Gastrointestinal (Abdomen): normal bowel sounds, soft, nontender, no hepatosplenomegaly Psychiatric: A+Ox3, euthymic affect Results & Data Results & Data ([facility]) Vital Signs (Past 12 Hours) Vital Signs Temp Pulse Pulse Resp BP Pulse Ox O2 Del Method 06/15/22 14:11 83 06/15/22 16:00 37.1 C 82 18 106/65 96 Room Air 06/15/22 12:00 37 C 77 18 106/70 98 Room Air 06/15/22 07:58 36.9 C 88 18 127/76 97 Room Air PG Care Time/CCT Total # of Minutes Spent Total Time Spent with Patient: Total time spent is greater than 50% in coordination of care (as documented) at patient's floor/unit and/or counseling patient: Coding Level of Care Code 03692 Subseq Hosp Care Lvl 1 Diagnoses Acute GI bleeding K92.2 GERD without esophagitis K21.9
[2022-06-16] MEDS: PANTOprazole 40 MG in DEXTROSE 5% 100 ML IV SCH ×6 (00:37→23:00)
[2022-06-16] MEDS: ACETAMINOPHEN 325 MG TAB PO PRN ×2 (04:05→08:43)
[2022-06-16 14:23] LABS: Hematocrit (blood only) 28.6 % (34.1-44.9); Mean Corpuscular Hemoglobin 30.5 pg (25.0-34.0); Mean Corpuscular Volume 87.2 fL (80.0-100.0); Mean Platelet Volume 9.4 fL (9.4-12.3); Platelet Count 205 K/uL (130-400); RDW Coefficient of Variation 12.3 % (11.5-14.5); Red Blood Count 3.28 M/uL (3.93-5.22); White Blood Count 4.56 K/ul (4.8-10.8)
--- NOTE | 2022-06-16 15:18 | Hospitalist Progress Note ---
Date of Service June 16, 2022 Assessment & Plan (1) Acute GI bleeding: Plan: Nonbleeding ulcer on EGD [06/14] after recently discontinuing her omeprazole H. pylori testing pending Advanced to full liquids Continue pantoprazole 8mg/hr, can d/c tomorrow with discharge at that time per GI recommendations Repeat hemoglobin with a.m. labs (2) GERD without esophagitis: Plan VTE Prophylaxis - SCDs Diet - per gastroenterology Disposition - continue on med/surg Admission and Anticipated Discharge Date Admission Date: June 15, 2022 Subjective No hematemesis, nausea, vomiting, abdominal pain, diarrhea, melena or bright red blood per rectum. No chest pain, shortness of breath, chest pain. Tolerating clear liquid diet without issues. Review of Systems Review of Systems: All systems reviewed & are unremarkable except as noted in Subjective Physical Exam Constitutional: WD/WN, vitals as above Respiratory: normal respiratory effort, lungs clear to auscultation Cardiovascular: RRR, no murmur, no edema Gastrointestinal (Abdomen): normal bowel sounds, soft, nontender, no hepatosplenomegaly Psychiatric: A+Ox3, euthymic affect Results & Data Results & Data ([facility]) Vital Signs (Past 12 Hours) Vital Signs Temp Pulse Resp BP Pulse Ox O2 Del Method 06/16/22 07:25 37 C 79 18 106/68 96 Room Air PG Care Time/CCT Total # of Minutes Spent Total Time Spent with Patient: Total time spent is greater than 50% in coordination of care (as documented) at patient's floor/unit and/or counseling patient: Coding Level of Care Code 81924 Subseq Hosp Care Lvl 1 Diagnoses Acute GI bleeding K92.2 GERD without esophagitis K21.9
[2022-06-17] MEDS: PANTOprazole 40 MG in DEXTROSE 5% 100 ML IV SCH ×2 (03:51→08:56)
[2022-06-17 07:15] LABS: Hematocrit (blood only) 30.3 % (34.1-44.9); Hemoglobin 10.6 g/dl (12.0-16.0); Mean Corpuscular Hemoglobin 30.5 pg (25.0-34.0); Mean Corpuscular Volume 87.1 fL (80.0-100.0); Mean Platelet Volume 9.5 fL (9.4-12.3); Platelet Count 237 K/uL (130-400); RDW Coefficient of Variation 12.5 % (11.5-14.5); RDW Standard Deviation 39.3 fL (36.4-46.3); Red Blood Count 3.48 M/uL (3.93-5.22); White Blood Count 4.88 K/ul (4.8-10.8)
[2022-06-17] MEDS: ACETAMINOPHEN 325 MG TAB PO PRN (08:56)
--- NOTE | 2022-06-17 13:52 | Discharge Summary ---
Date of Service June 17, 2022 Admission HPI Per Admitting Provider 61yo female with a history of HTN, GERD, and remote history of acute GI bleed (which did not require transfusion) presents with a few-hour history of hematochezia. Patient had a BM a few hours ago which she noticed was "purple dark blood". Patient also endorses mild lower abdominal cramping. Also had one episode of vomiting earlier today which was nonbloody and nonbilious. Patient denies fever, chills, abdominal pain, headache, vision changes, CP, palpitations, SOB, edema, abdominal pain, dysuria, back pain, dizziness, numbness, tingling, weakness, or other symptoms. Denies recent illness and recent travel. Upon arrival, vitals were notable for tachycardia (100-110s) and intermittent tachypnea (RR ranging from 20-27); BP well-controlled, patient afebrile, spO2 adequate on room air. Initial labs were relatively unremarkable; no leukocytosis, no anemia, platelets wnl, no electrolyte abnormalities, creatinine not elevated, LFTs wnl, covid PCR negative. In the ED, patient received NSS 1L bolus (x1) and pantoprazole 80mg IV (x1). EKG: sinus tachycardia, no overt ischemic change Imaging: CT abdomen/pelvis: no acute findings, colon and rectum grossly normal in appearance, "slightly complex but likely benign" left renal cysts noted measuring 5.8cm Surrogate decision-maker in case of an emergency: josy Paul (cell: [phone]) Principal Diagnosis Acute upper GI bleed due to a duodenal ulcer Discharge Exam Constitutional WD/WN, vitals as above ENMT external ear and nose normal, oropharynx normal Neck trachea midline, no thyromegaly Respiratory normal respiratory effort, lungs clear to auscultation Cardiovascular RRR, no murmur, no edema Gastrointestinal (Abdomen) normal bowel sounds, soft, nontender, no hepatosplenomegaly Neurologic moves all extremities and awake; not confused Psychiatric A+Ox3, euthymic affect Discharge Data Allergies Allergy/AdvReac Type Severity Reaction Status Date / Time Sulfa (Sulfonamide Allergy Intermediate "SULFA": Verified 06/13/22 23:52 Antibiotics) RASH Penicillins Allergy Unknown ? Verified 06/13/22 23:52 Consultations 06/13/22 23:40 ED Decision to Admit Stat 06/14/22 08:00 Consult Gastroenterology Routine Procedures Performed Operation Date: 06/14/22 16:30 Actual Procedures p EGD Hemostasis - Aditya Goins, DO Ordered Studies 06/13/22 22:08 CT abd pelvis IV con only Urgent IMPRESSION: 1. No acute infectious or inflammatory findings identified in the abdomen or pelvis. 2. Bibasilar pulmonary nodules measure up to 6 mm. These are pathologically indeterminant, and have increased in size dating back to 2010. Consider a precautionary 6 month follow-up chest CT for reassessment and for full evaluation of the thorax. 3. Additional findings as above. Hospital Course (1) Acute GI bleeding: Page Paul is a 61 year old female admitted to [facility] from June 13 - 2021 due to acute upper gastrointestinal bleed. This was treated with intravenous pantoprazole bolus and drip. Endoscopy was performed by Dr Goins on June 14 showing a non-bleeding duodenal ulcer with a visible vessel which was injected with epinephrine and treated with bipolar cautery. Her hemoglobin remained stable and you did not require a blood transfusion. Hemoglobin 10.6 g/dL on discharge. She should continue on pantoprazole 40mg PO twice a day for 8 weeks, then 40mg PO daily thereafter and follow up with gastroenterology in approximately 4 weeks. She was advised to avoid all NSAIDs and foods that can exacerbate gastritis such as spicy, acidic or highly caffeinated products. Regarding incidental pulmonary nodules consider repeat CT chest in approximately 6 months for follow up. (2) GERD without esophagitis: Total Time Total Time Spent Total Time Spent (In Minutes): 25 Discharge Plan Discharge Items Patient Disposition: Home - Self-Care Reason For Visit: ACUTE UPPER GI BLEED Discharge Diagnosis: Acute upper GI bleed due to a duodenal ulcer Condition on Discharge: Good Activity: Resume your previous activity Non-emergency contact: Primary Care Provider Call non-emergency contact if: you have any medication questions and your symptoms worsen Follow-up/Referrals: Aditya Goins, [Physician] - (4 week UGI bleed f/u) Cesar Arevalo MD [Primary Care Provider] - Diet: Regular Addtl Attending Provider Instructions: You were admitted to [facility] from June 13 - 2021 due to acute upper gastrointestinal bleed. This was treated with intravenous pantoprazole. Endoscopy was performed by Dr Goins on June 14 showing a non- bleeding duodenal ulcer with a visible vessel which was injected with epinephrine and treated with bipolar cautery. Your hemoglobin remained stable and you did not require a blood transfusion. Hemoglobin 10.6 g/dL on discharge. Please continue pantoprazole 40mg PO twice a day for 8 weeks, then 40mg PO daily thereafter. Please follow up with gastroenterology in approximately 4 weeks. Please avoid all NSAIDs (all over the counter pain medication other than acetaminophen) and aspirin. Avoid foods that can exacerbate gastritis such as spicy, acidic or highly caffeinated products. Pending Studies at Discharge: No Stand-Alone Forms: [facility], Smoking Cessation Medications and DC Order Prescriptions: New pantoprazole 40 mg tablet,delayed release (DR/EC) 40 mg PO BID Qty: 60 0RF Discontinued omeprazole 40 mg capsule,delayed release(DR/EC) 40 mg PO DAILY Discharge Orders: Discharge Order (Routine); Ordered 06/17/22 Ordered By: Vj Hudson Admission Data Admit Date/Time: 06/15/22 18:37 Attending Provider: Vj Hudson Admit Provider: Freddie Lyon Primary Care Provider: Cesar Arevalo Other Providers: Chung Segundo ; Aditya Goins Other Interventions: Discharge Summary Assessment (RN) Last Done: 06/17/22 14:03 Coding Level of Care Code D/C DAY MANAGEMENT <30 MINS Diagnoses Acute GI bleeding K92.2 GERD without esophagitis K21.9
== END 2022-06-17 14:20 | disposition home or self-care (01) | DRG 379 ==
LOC: ED 21:45 → 2W 21:45 → SUATTDRO 06-14 01:03 → 2W 06-14 02:10 → 3W 06-15 22:30